=== PATIENT | female | born 1960 | race Caucasian/White ===

== ENCOUNTER → 2024-08-06 | Day surgery (SDC) | payer MEDICARE, OTHER ==
[2024-08-03 09:32] LABS: BASOPHILS # (AUTO) 0.1 (0.0-0.1); BASOPHILS % 0.5 % (0.0-1.0); EOSINOPHILS # (AUTO) 0.1 (0.0-0.4); EOSINOPHILS % 1.3 % (0.0-6.0); HEMATOCRIT 45.8 % (34.2-44.1); HEMOGLOBIN 14.6 g/dL (12.0-16.0); LYMPHOCYTES % 26.9 % (18.0-39.1); MEAN CORPUSCULAR HEMOGLOBIN 30.5 pg (28-32); MEAN CORPUSCULAR HGB CONC 31.9 g/dL (31-35); MEAN CORPUSCULAR VOLUME 95.6 fL (81-99); MONOCYTES # (AUTO) 0.9 (0.2-0.8); MONOCYTES % 7.9 % (4.4-11.3); PLATELET COUNT 266 x10e3/uL (140-360); RED BLOOD COUNT 4.79 x10e6/uL (3.6-5.1); RED CELL DISTRIBUTION WIDTH 13.9 % (11.7-14.4); WHITE BLOOD COUNT 11.07 x10e3/uL (4.8-10.8)
[~2024-08-06] MED LIST: ALIGN4 MG PO; ATORVASTATIN CA20 MG PO; BUPROPION XL150 MG PO; HYOSCYAMINE SULFATE 0.5 MG/ML INJ ONE; LABETALOL HCL 20 ML ONE; LEVAQUIN500 MG PO; LISINOPRIL10 MG PO; METOPROLOL SUCC50 MG PO; Nystatin/Triamcinolone TOP; TRAZODONE HCL50 MG PO
[2024-08-06] MEDS: LACTATED RINGER'S 1,000 ML ONE (10:45)
[2024-08-06] MEDS: LABETALOL HCL 5 MG/ML 20ML VIAL IV ONE ×2 (13:15→13:30)
[2024-08-06 13:42] VITALS: BP 169/97; PULSE 82; RESP 16; TEMP 97.2; O2SAT 97
== END | disposition home or self-care (01) ==
LOC: OR 09:47
PROVIDERS: ATTEND Internal Medicine Gastroenterology
DX: R19.5 Other fecal abnormalities (principal); D12.5 Benign neoplasm of sigmoid colon; D12.2 Benign neoplasm of ascending colon; K62.1 Rectal polyp; K29.70 Gastritis, unspecified, without bleeding; K29.80 Duodenitis without bleeding; Z86.19 Personal history of other infectious and parasitic diseases; K20.90 Esophagitis, unspecified without bleeding; K44.9 Diaphragmatic hernia without obstruction or gangrene; K31.89 Other diseases of stomach and duodenum; K57.30 Diverticulosis of large intestine without perforation or abscess without bleeding; K64.8 Other hemorrhoids; Z71.3 Dietary counseling and surveillance; I10 Essential (primary) hypertension; Z71.89 Other specified counseling; G47.30 Sleep apnea, unspecified; J44.9 Chronic obstructive pulmonary disease, unspecified; F17.210 Nicotine dependence, cigarettes, uncomplicated; Z71.6 Tobacco abuse counseling; Z88.1 Allergy status to other antibiotic agents; Z88.2 Allergy status to sulfonamides; Z01.810 Encounter for preprocedural cardiovascular examination; Z01.812 Encounter for preprocedural laboratory examination; Z79.899 Other long term (current) drug therapy; Z68.29 Body mass index [BMI] 29.0-29.9, adult
CPT/HCPCS: 36415; 43239; 45385; 85025; 93005; J1980; J2470; J3490; J7121; 45378

== ENCOUNTER 2024-12-12 17:02 | Emergency (ER) | payer MEDICARE ==
[~2024-12-12] VITALS: Ht 160 cm; Wt 73.9 kg
[~2024-12-12 17:02] MED LIST changes: -HYOSCYAMINE SULFATE 0.5 MG/ML INJ ONE; -LABETALOL HCL 20 ML ONE
[2024-12-12 17:21] VITALS: TEMP 97.9
[2024-12-12] MEDS: SODIUM CHLORIDE 0.9% 1000ML 1,000 ML IV STA (17:55)
[2024-12-12 18:12] LABS: BASOPHILS % 0.3 % (0.0-1.0); EOSINOPHILS # (AUTO) 0.1 (0.0-0.4); EOSINOPHILS % 1.3 % (0.0-6.0); HEMATOCRIT 44.4 % (34.2-44.1); LYMPHOCYTES # (AUTO) 3.1 (1.0-3.2); LYMPHOCYTES % 34.9 % (18.0-39.1); MEAN CORPUSCULAR HEMOGLOBIN 30.7 pg (28-32); MEAN CORPUSCULAR HGB CONC 33.8 g/dL (31-35); MEAN CORPUSCULAR VOLUME 90.8 fL (81-99); MONOCYTES # (AUTO) 0.6 (0.2-0.8); NEUTROPHILS # (AUTO) 5.1 (2.1-6.9); NEUTROPHILS % 56.3 % (38.7-80.0); PLATELET COUNT 314 x10e3/uL (140-360); RED BLOOD COUNT 4.89 x10e6/uL (3.6-5.1); RED CELL DISTRIBUTION WIDTH 14.6 % (11.7-14.4); WHITE BLOOD COUNT 8.99 x10e3/uL (4.8-10.8)
[2024-12-12 18:17] LABS: INR 0.9; PROTHROMBIN TIME 12.7 seconds (11.9-14.5)
[2024-12-12 18:25] LABS: ALBUMIN/GLOBULIN RATIO 1.1 (0.8-2.0); ANION GAP 16.9 mmol/L (8-16); BILIRUBIN,TOTAL 0.5 mg/dL (0.2-1.2); CALCIUM 9.3 mg/dL (8.4-10.2); CREATININE, SERUM 2.08 mg/dL (0.57-1.11); POTASSIUM 3.9 mmol/L (3.5-5.1); TOTAL PROTEIN 7.5 g/dL (6.5-8.1)
[2024-12-12 18:31] LABS: TROPONIN I 0.023 ng/mL (0-0.300)
[2024-12-12 18:37] LABS: B-TYPE NATRIURETIC PEPTIDE2 < 10.0 pg/mL (0-100)
[2024-12-12] MEDS ORDERED: IOPAMIDOL 370 MG/ML 100 ML INFUS..BTL INJ ONE (18:46)
[2024-12-12] MEDS ORDERED: SODIUM CHLORIDE 0.9% 100 ML ONE (18:46)
[2024-12-12 19:17] LABS: INFLUENZA A AG NEGATIVE (NEGATIVE); INFLUENZA B AG NEGATIVE (NEGATIVE)
[2024-12-12 19:18] LABS: CORONAVIRUS COVID-19 AG NEGATIVE (NEGATIVE)
[2024-12-12] MEDS ORDERED: ULTRAM 50MG50 MG PO (20:45)
[2024-12-12 21:16] VITALS: PULSE 71; RESP 20; O2SAT 95
== END 2024-12-12 21:35 | disposition home or self-care (01) ==
LOC: ER 17:39
DX: R47.81 Slurred speech (principal); M25.511 Pain in right shoulder; I10 Essential (primary) hypertension; J44.9 Chronic obstructive pulmonary disease, unspecified; F17.210 Nicotine dependence, cigarettes, uncomplicated
CPT/HCPCS: 29240; 36415; 70496; 70498; 71045; 73030; 80053; 82140; 82550; 83690; 83880; 84484; 85025; 85610; 87428; 93005; 99284; J7030; J7050; Q9967